=== PATIENT | male | born 1950 | race Caucasian/White ===

== ENCOUNTER → 2016-10-02 | Outpatient (CLI) | payer OTHER ==
[~2016-10-02] MED LIST: ASPI325T8 PO; CYAN1TAB28 PO; ERGO500027 PO; EZET1TAB41 PO; NAPR220C4 PO; TAMS0.4C2 PO
== END | disposition home or self-care (01) ==
LOC: LAB 15:16
PROVIDERS: ATTEND Nurse Practitioner Occupational Health
DX: Z12.5 Encounter for screening for malignant neoplasm of prostate (principal); N40.0 Benign prostatic hyperplasia without lower urinary tract symptoms
CPT/HCPCS: 36415; G0103

== ENCOUNTER → 2018-04-10 | Outpatient (CLI) | payer OTHER ==
[~2018-04-10] MED LIST changes: +REGADENOSON 0.4 MG/5 ML DISP.SYRIN. IV ONE
--- NOTE | 2018-04-10 12:15 | RAD ---
MR#: [id number] Date of Study: 04/10/2018 Ordering Physician: JUDITH BLACKBURN, Referring Physician: KATRINA CRANE Tech: RT Georges (R) (N) APPROVED REPORT Test Type: Pharmacological Stress Nurse/Tech: Nomi Davis RN Test Indications: CAD Cardiac History: CABG, stents Medications: See Electronic Medical Record Medical History: See Electronic Medical Record Resting ECG: SR Resting Heart Rate: 80 bpm Resting Blood Pressure: 104/65mmHg Pretest Chest Pain: None Nurse/Tech Notes Lungs CTA, S1S2 Consent: The procedure was explained to the patient in lay terms. Informed consent was witnessed. Wayne eout was entered into [email or web address]. History and Stress Test performed by Nomi Davis RN Pharm. Details Pharmacologic stress testing was performed using 0.4mg per 5ml of regadenoson given intravenously ove r 7-10 seconds. Stress Symptoms No chest pain or symptoms. POST EXERCISE Reason for Termination: Infusion complete Max HR: 96 bpm Max Blood Pressure: 116/57mmHg Blood Pressure response to exercise: Normal blood pressure response during stress. Heart Rate response to exercise: normal response Chest Pain: No. Arrhythmia: No. ST Change: No. INTERPRETATION Stress EKG Conclusion: Baseline EKG showed sinus rhythm. No ischemic changes at peak stress. No arr hythmias. Imaging Protocol IMAGE PROTOCOL: Rest Tc-99m/stress Tc-99m 1 day Rest: Stress: Viability: Radiopharm.Tc99m BcgluqylrFp02j Sestamibi Vqjd58gOf 33mCi Duration 13min. 13min. Img Date 04/10/2018 04/10/2018 Inj-Img Flsk71amd. 60min. Rest Admin Site:IV - Left AntecubitalAdministrator:RADHA Fields Stress Admin Site: IV - Left AntecubitalAdministrator: RT Georges (R)(N) STRESS DATA End Diast. Vol.73.0mlLVEDV index BSA36.0ml End Syst. Vol.21.0mlLVESV index BSA10.0ml Myocardial Xnlu097.0gEject. Ilivcejs85.0% Stress Scores Regional WT0.00Summed WT5.00 Regional WM0.00Summed WM9.00 Study quality was good. Left Ventricular size was Normal at Rest and Stress. Lung uptake was . Left Ventricular ejection fraction is 71%. The rest and stress images show normal perfusion, normal contraction and thickening. LV Perf. Quant 17 Seg. SSS3.00 17 Seg. SRS0.00 17 Seg. SDS3.00 Stress Defect Extent (% LAD)0.00Rest Defect Extent (% LAD)0.00Rev. Defect Extent (% LAD)0.00 Stress Defect Extent (% LCX) 36.30Rest Defect Extent (% LCX)0.00Rev. Defect Extent (% LCX)28.80 Stress Defect Extent (% RCA)0.00Rest Defect Extent (% RCA)0.00Rev. Defect Extent (% RCA)0.00 Stress Defect Extent (% GITA)6.30Rest Defect Extent (% GITA)0.00Rev. Defect Extent (% GITA)5.00 Conclusion 1. Regadenoson cardioisotope stress test did not show any evidence of ischemia or infarct. 2. Normal left ventricular systolic function with ejection fraction calculated at 71%. 3. Low risk for cardiac events. Signed by : Monico Boyd, Electronically Approved : 04/10/2018 12:14:46
== END | disposition home or self-care (01) ==
LOC: NM 08:13
PROVIDERS: ATTEND Internal Medicine Cardiovascular Disease
DX: I25.10 Atherosclerotic heart disease of native coronary artery without angina pectoris (principal); Z95.1 Presence of aortocoronary bypass graft
CPT/HCPCS: 78452; 93017; 96374; 96375; 96376; A9500; J2785

== ENCOUNTER → 2020-12-24 | Outpatient (CLI) | payer OTHER ==
[~2020-12-24] MED LIST changes: -REGADENOSON 0.4 MG/5 ML DISP.SYRIN. IV ONE
--- NOTE | 2020-12-24 09:15 | RAD ---
US DPLX ARTR EXTREM LOWER BILAT, US DPLX ARTR EXTREM LOWER BILAT Indication: Reason: FAINT PULSES B/L LEGS / Spl. Instructions: / History: Comparison: None. Procedure: Arterial pressures are measured in the arms and ankles. Real-time grayscale, color flow D oppler, and Doppler spectral waveform analysis of the arterial system of the lower extremity is perfo rmed. Findings: Right arm: 105 mm Hg. Right ankle: 115 mm Hg. Right leg CINDY: 1.1. Left arm: 100 mm Hg. Left ankle: 130 mm Hg. Left leg CINDY: 1.2. CINDY interpretation: Greater than 1.4 Calcified noncompressible vessels 0.96 to 1.4 Generally normal 0.81-0.95 Mild disease 0.51-0.80 Moderate disease 0.31-0.50 Moderate to severe disease 0.3 or below Severe disease Findings: Right lower extremity: Triphasic or biphasic waveforms throughout the right lower extremity. No signi ficant velocity elevation. Right peroneal artery not well evaluated. Mild atheromatous plaque. Left lower extremity: Triphasic or biphasic waveforms throughout the left lower extremity. No signifi cant velocity elevation. Left peroneal artery not well evaluated. Mild atheromatous plaque. IMPRESSION: 1. No hemodynamically significant arterial stenosis. 2. Normal bilateral ankle brachial indices. Electronically signed by: Alexandre Pavon DO (12/24/2020 9:12 AM) [id number]
== END ==
LOC: US 08:02
PROVIDERS: ATTEND Podiatrist
DX: I70.203 Unspecified atherosclerosis of native arteries of extremities, bilateral legs (principal)
CPT/HCPCS: 93922; 93925

== ENCOUNTER 2021-01-14 01:19 | Emergency (ER) | payer OTHER ==
[~2021-01-14] VITALS: Ht 167.6 cm; Wt 100.0 kg
[2021-01-14] MEDS ORDERED: KETOROLAC 30 MG/ML VIAL. IVP ONE (01:30)
[2021-01-14] MEDS ORDERED: IV NORMAL SALINE 1000ML BAG 1,000 ML IV ONE (01:30)
[2021-01-14 01:36] LABS: BASO # 0.1 x10^3/uL (0.0-0.2); BASO % 1 % (0-3); EOS # 0.2 x10^3/uL (0.0-0.7); EOS % 2 % (0-3); HEMATOCRIT 44.5 % (39.0-53.0); HEMOGLOBIN 14.9 g/dL (13.0-17.5); LYMPH # 2.2 x10^3/uL (1.0-4.8); LYMPH % 29 % (24-48); MEAN CORPUSCULAR HEMOGLOBIN 29 pg (25-35); MEAN CORPUSCULAR HGB CONC 34 g/dL (31-37); MEAN CORPUSCULAR VOLUME 86 fL (79-100); MONO # 0.7 x10^3/uL (0.0-1.1); MONO % 10 % (0-9); NEUT # 4.2 x10^3/uL (1.8-7.7); NEUT % 57 % (31-73); PLATELET COUNT 129 x10^3/uL (140-400); RED BLOOD COUNT 5.15 x10^6/uL (4.30-5.70); RED CELL DISTRIBUTION WIDTH 14.7 % (11.5-14.5); WHITE BLOOD COUNT 7.3 x10^3/uL (4.0-11.0)
[2021-01-14 01:49] LABS: CALCIUM 9.5 mg/dL (8.5-10.1); CREATININE 1.3 mg/dL (0.7-1.3); GFR 54.7; POTASSIUM 4.5 mmol/L (3.5-5.1)
[2021-01-14 01:54] LABS: ALBUMIN 4.1 g/dL (3.4-5.0); ALBUMIN/GLOBULIN RATIO 1.3 (1.0-1.7); TOTAL BILIRUBIN 0.5 mg/dL (0.2-1.0); TOTAL PROTEIN 7.3 g/dL (6.4-8.2)
--- NOTE | 2021-01-14 02:01 | RAD ---
CT abdomen and pelvis without contrast PQRS statement: CT scans at this facility use dose reduction including either automated exposure cont rol, iterative reconstructions, and /or weight based radiation dosing via mA and kV modification when appropriate to reduce radiation dose to as low as reasonably achievable. HISTORY: Left flank pain. Abdomen findings: There is a chronic L1 vertebral compression fracture deformity. Lumbar disc disease . Lung bases unremarkable. Liver cysts densities less than 20 units largest measuring 1.5 cm. Small g allstones. Pancreas, adrenals, spleen unremarkable. Bilateral perinephric edema. Nephrolithiasis. 2.5 cm right renal upper pole cyst density 10 units. Mild left renal hydronephrosis renal pelvis diamete r 1.2 cm with mild dilation and edema of the ureter leading up to a distal left ureteral 3 mm calculu s 1 cm above the ureterovesical junction. Tortuosity and calcified plaque aorta and iliac arteries an d abdominal arteries. 3 cm fatty umbilical abdominal wall hernia. Appendix is negative. Tortuous sigm oid colon. No abdominal fluid. Pelvis findings: No bladder calculi. Prostate, rectum and bones are unremarkable. IMPRESSION: 1. Mild left renal hydronephrosis associated with a 3 mm distal ureteral obstructing calculus. 2. Bilateral nephrolithiasis. 3. Appendix is negative. 4. Other incidental findings as described above. Electronically signed by: Supa Hidalgo MD (01/14/2021 1:58 AM) [facility]
[2021-01-14] MEDS ORDERED: HYDR-2759 PO ×2 (02:09→04:48)
[2021-01-14] MEDS ORDERED: TAMS0.4C97 PO (02:09)
--- NOTE | 2021-01-14 02:09 | PHYS DOC ---
Past Medical History Additional Past Medical Histor: QUADRUPLE BY PASS Past Surgical History: Coronary Bypass Surgery General Adult EDM: Chief Complaint: FLANK PAIN HPI: HPI: Patient is a 70 year [id number]-dyz male presents with a chief complaint of left flank pain. Patient states sudden onset of left flank pain with radiation to the suprapubic region. Patient states he had difficulty urinating he has associated nausea but has not vomited. Patient denies any previous history of similar symptoms. Review of Systems: Review of Systems: Review of systems: Constitutional symptoms- No fever, no chills. Eyes- No Discharge, No Visual Loss Respiratory symptoms- No shortness of breath, No wheezing, No Dyspnea on Exertion Cardiovascular Systems; No chest pain, No Palpitations, No syncope Gastrointestinal symptoms: NO abdominal pain, Positive nausea, no vomiting or diarrhea. Genitourinary symptoms: No dysuria. Positive flank pain positive urinary hesitancy Musculoskeletal symptoms: No back pain No extremity pain. NEUROLOGICAL Symptoms: No headache, no generalized weakness; No focal Weakness Skin: No rash. Heart Score: C/O Chest Pain: N/A Risk Factors: Risk Factors: DM, Current or recent (<one month) smoker, HTN, HLP, family history of CAD, obesity. Risk Scores: Score 0 - 3: 2.5% MACE over next 6 weeks - Discharge Home Score 4 - 6: 20.3% MACE over next 6 weeks - Admit for Clinical Observation Score 7 - 10: 72.7% MACE over next 6 weeks - Early Invasive Strategies Current Medications: Current Medications Medications (Trade) Dose Ordered Sig/[facility] Start Time Stop Time Status Last Admin Dose Admin Ketorolac Tromethamine (Toradol 30mg Vial) 30 mg 1X ONCE 01/14/21 01:30 01/14/21 01:31 DC Sodium Chloride 1,000 ml @ 1,000 mls/hr 1X ONCE 01/14/21 01:30 01/14/21 02:29 Allergies: Allergies: Allergies Coded Allergies Type Severity Reaction Last Updated Verified sulfamethoxazole Allergy Intermediate 06/19/14 Yes trimethoprim Allergy Intermediate 06/19/14 Yes Physical Exam: PE: General: alert, no acute distress. Skin: warm, dry and intact, no erythema, no rash. HENT: bilateral external ears normal, oropharynx moist, nose normal. Head:: Normocephalic, atraumatic. Neck: Trachea midline. Eyes: EOMI, Normal conjunctiva, No drainage CARDIOVASCULAR: Regular rate and rhythm RESPIRATORY: No respiratory distress Back: Full range of motion. MUSCULOSKELETAL: Full range of motion of bilateral upper and lower extremities. GASTROINTESTINAL: Abdomen soft without rebound or guarding. NEUROLOGICAL: Alert and noted to person, place and time. No neurological deficits observed Psychiatric: Cooperative. Normal judgment Current Patient Data: Labs: Laboratory Tests Test 01/14/21 01:28 White Blood Count 7.3 x10^3/uL (4.0-11.0) Red Blood Count 5.15 x10^6/uL (4.30-5.70) Hemoglobin 14.9 g/dL (13.0-17.5) Hematocrit 44.5 % (39.0-53.0) Mean Corpuscular Volume 86 fL (79-100) Mean Corpuscular Hemoglobin 29 pg (25-35) Mean Corpuscular Hemoglobin Concent 34 g/dL (31-37) Red Cell Distribution Width 14.7 % (11.5-14.5) H Platelet Count 129 x10^3/uL (140-400) L Neutrophils (%) (Auto) 57 % (31-73) Lymphocytes (%) (Auto) 29 % (24-48) Monocytes (%) (Auto) 10 % (0-9) H Eosinophils (%) (Auto) 2 % (0-3) Basophils (%) (Auto) 1 % (0-3) Neutrophils # (Auto) 4.2 x10^3/uL (1.8-7.7) Lymphocytes # (Auto) 2.2 x10^3/uL (1.0-4.8) Monocytes # (Auto) 0.7 x10^3/uL (0.0-1.1) Eosinophils # (Auto) 0.2 x10^3/uL (0.0-0.7) Basophils # (Auto) 0.1 x10^3/uL (0.0-0.2) Sodium Level 140 mmol/L (136-145) Potassium Level 4.5 mmol/L (3.5-5.1) Chloride Level 103 mmol/L (98-107) Carbon Dioxide Level 27 mmol/L (21-32) Anion Gap 10 (6-14) Blood Urea Nitrogen 28 mg/dL (8-26) H Creatinine 1.3 mg/dL (0.7-1.3) Estimated GFR (Cockcroft-Gault) 54.7 BUN/Creatinine Ratio 22 (6-20) H Glucose Level 114 mg/dL (70-99) H Calcium Level 9.5 mg/dL (8.5-10.1) Total Bilirubin 0.5 mg/dL (0.2-1.0) Aspartate Amino Transferase (AST) 36 U/L (15-37) Alanine Aminotransferase (ALT) 52 U/L (16-63) Alkaline Phosphatase 75 U/L (46-116) Total Protein 7.3 g/dL (6.4-8.2) Albumin 4.1 g/dL (3.4-5.0) Albumin/Globulin Ratio 1.3 (1.0-1.7) Laboratory Tests 01/14/21 01:28 Laboratory Tests 01/14/21 01:28 EKG: EKG: [] Radiology/Procedures: Radiology/Procedures: [] Impression: CT abdomen and pelvis without contrast PQRS statement: CT scans at this facility use dose reduction including either automated exposure control, iterative reconstructions, and /or weight based radiation dosing via mA and kV modification when appropriate to reduce radiation dose to as low as reasonably achievable. HISTORY: Left flank pain. Abdomen findings: There is a chronic L1 vertebral compression fracture deformity. Lumbar disc disease. Lung bases unremarkable. Liver cysts densities less than 20 units largest measuring 1.5 cm. Small gallstones. Pancreas, adrenals, spleen unremarkable. Bilateral perinephric edema. Nephrolithiasis. 2.5 cm right renal upper pole cyst density 10 units. Mild left renal hydronephrosis renal pelvis diameter 1.2 cm with mild dilation and edema of the ureter leading up to a distal left ureteral 3 mm calculus 1 cm above the ureterovesical junction. Tortuosity and calcified plaque aorta and iliac arteries and abdominal arteries. 3 cm fatty umbilical abdominal wall hernia. Appendix is negative. Tortuous sigmoid colon. No abdominal fluid. Pelvis findings: No bladder calculi. Prostate, rectum and bones are unremarkable. IMPRESSION: 1. Mild left renal hydronephrosis associated with a 3 mm distal ureteral obstructing calculus. 2. Bilateral nephrolithiasis. 3. Appendix is negative. 4. Other incidental findings as described above. Course & Med Decision Making: Course & Med Decision Making Pertinent Labs and Imaging studies reviewed. (See chart for details) [] Patient evaluated for chief complaint. Work-up consisted of laboratory analysis and radiologic imaging. Results reviewed and discussed with patient. Patient CT imaging shows a 3 mm stone left ureter nonobstructing no hydroureter no hydronephrosis. Patient pain treated with Toradol and morphine with improvement. Patient discharged home with follow-up instructions with urology Patient advised to see his urologist. Patient is currently on Flomax advised to continue as previously prescribed. Dragon Disclaimer: Dragon Disclaimer: This electronic medical record was generated, in whole or in part, using a voice recognition dictation system. Departure Departure Impression: Primary Impression: Kidney stone Disposition: HOME / SELF CARE / HOMELESS Condition: STABLE Referrals: Javier BOUCHER MD (PCP) Patient Instructions: Kidney Stones Scripts Ciprofloxacin Hcl (CIPRO) 500 Mg Tablet 1 TAB PO BID for 3 Days, #6 TAB 0 Refills Prov: PAWAN JEFFERS DO 01/14/21 Hydrocodone/Acetaminophen (Hydrocodone-Acetamin 5-325 mg) 1 Each Tablet 1 EACH PO Q4-6HRS, #20 TAB Prov: PAWAN JEFFERS DO 01/14/21 Tamsulosin Hcl (FLOMAX) 0.4 Mg Cap.er.24h 0.4 MG PO DAILY, #14 TAB Prov: PAWAN JEFFERS DO 01/14/21 PAWAN JEFFERS DO Jan 14, 2021 02:09
[2021-01-14] MEDS ORDERED: CYCLOBENZAPRINE 10 MG TABLET. PO ONE (03:00)
[2021-01-14] MEDS ORDERED: MORPHINE SULFATE 4 MG/ML INJ. IVP ONE (03:00)
[2021-01-14 03:21] LABS: BILIRUBIN,URINE NEGATIVE (NEG); CLARITY,URINE CLEAR; COLOR,URINE YELLOW; NITRITE,URINE NEGATIVE (NEG); PROTEIN,URINE NEGATIVE (NEG-TRACE)
[2021-01-14 03:27] LABS: RBC,URINE 20-40 /HPF (0-2)
[2021-01-14 03:28] LABS: BACTERIA,URINE 0 /HPF (0-FEW)
[2021-01-14] MEDS ORDERED: CIPR500T94 PO ×2 (03:51→04:48)
[2021-01-14 03:58] VITALS: BP 155/88
== END 2021-01-14 04:20 | disposition home or self-care (01) ==
LOC: ER 01:19
DX: N13.2 Hydronephrosis with renal and ureteral calculous obstruction (principal); Z95.1 Presence of aortocoronary bypass graft; Z88.2 Allergy status to sulfonamides; Z88.1 Allergy status to other antibiotic agents
CPT/HCPCS: 36415; 74176; 80053; 81001; 85025; 87086; 96361; 96374; 96375; 99285; J1885; J2270; J7030

== ENCOUNTER → 2021-10-18 | Outpatient (CLI) | payer OTHER, MEDICARE ==
[~2021-10-18] MED LIST changes: +CIPR500T94 PO; +HYDR-2759 PO; +TAMS0.4C97 PO
[2021-10-18 15:59] LABS: BASO % 1 % (0-3); EOS # 0.1 x10^3/uL (0.0-0.7); EOS % 3 % (0-3); HEMOGLOBIN 15.1 g/dL (13.0-17.5); LYMPH % 21 % (24-48); MEAN CORPUSCULAR HEMOGLOBIN 29 pg (25-35); MEAN CORPUSCULAR HGB CONC 33 g/dL (31-37); MEAN CORPUSCULAR VOLUME 89 fL (79-100); MONO # 0.4 x10^3/uL (0.0-1.1); MONO % 9 % (0-9); NEUT # 3.3 x10^3/uL (1.8-7.7); NEUT % 67 % (31-73); PLATELET COUNT 108 x10^3/uL (140-400); RED BLOOD COUNT 5.19 x10^6/uL (4.30-5.70); RED CELL DISTRIBUTION WIDTH 14.2 % (11.5-14.5); WHITE BLOOD COUNT 4.9 x10^3/uL (4.0-11.0)
[2021-10-22 18:09] LABS: KAPPA FREE 23.2 mg/L (3.3-19.4); KAPPA LAMBDA RATIO 1.26 (0.26-1.65); LAMBDA FREE 18.4 mg/L (5.7-26.3)
[2021-10-25 15:12] LABS: COMMENT IMMUNOFIX SERUM Note: (.); IMMUNOGLOBULIN A 177 mg/dL (61-437); IMMUNOGLOBULIN G 1004 mg/dL (603-1613); IMMUNOGLOBULIN M 177 mg/dL (20-172)
[2021-10-26 12:14] LABS: ALBUM 3.6 g/dL (2.9-4.4); ALPHA 1 0.2 g/dL (0.0-0.4); ALPHA 2 0.7 g/dL (0.4-1.0); PROTEIN TOTAL 6.5 g/dL (6.0-8.5); SPEP AG RATIO 1.2 (0.7-1.7)
== END ==
LOC: ONCLAB 15:39
PROVIDERS: ATTEND Internal Medicine Hematology & Oncology
DX: N40.0 Benign prostatic hyperplasia without lower urinary tract symptoms (principal); E55.9 Vitamin D deficiency, unspecified; D69.59 Other secondary thrombocytopenia; D69.6 Thrombocytopenia, unspecified
CPT/HCPCS: 36415; 82525; 82607; 82746; 82784; 83520; 84165; 85025; 86334; 86703; 86803